=== PATIENT | male | born 1955 | race Caucasian/White ===

== ENCOUNTER 2016-10-29 07:14 | Emergency (ER) | payer BC ==
[2016-10-29 07:30] VITALS: BP 135/82; TEMP 97.8; O2SAT 95
[2016-10-29] MEDS ORDERED: LIDOCAINE 1% W/ EPINEPHRINE 20 ML VIAL INJ ONE (07:39)
[2016-10-29] MEDS ORDERED: NEOMYCIN-BACITRACIN-POLYMYXIN 0.9 GM UD TOP ONE (07:48)
[2016-10-29] MEDS ORDERED: SULFA/TRIMETH 800/160 (DS) TAB 1 EA TAB PO ONE (08:00)
--- NOTE | 2016-10-29 08:21 | ED.PDOC ---
History of Present Illness - General Chief Complaint: Skin/Abrasion/Tear Stated Complaint: skin irritation Time Seen by Provider: 10/29/16 08:19 Source: patient Exam Limitations: no limitations - History of Present Illness Initial Comments: the patient is a 61-year-old male presenting to the emergency room secondary to left anterior thigh abscess. There is been present for approximately 3 days. It was preceded by a smaller abscess to the right side of the mons pubis that his artery drained and healing. No fevers or systemic symptoms. No drainage from the site yet. He is neurovascularly intact distally. He has diabetic. No evidence of sepsis. Severity: moderate Improving Factors: nothing Worsening Factors: nothing Associated Symptoms: denies symptoms Allergies/Adverse Reactions: Allergies Amoxicillin Allergy (Verified 10/29/16 07:30) Rash Penicillin G Allergy (Verified 10/29/16 07:30) Rash Home Medications: Ambulatory Orders Lisinopril [Prinivil] 20 mg PO DAILY 03/06/13 Glyburide 2.5 mg PO DAILY 10/29/16 Sitagliptin-Metformin HCl [Janumet] 1 tab PO DAILY 10/29/16 Sulfamethoxazole-Trimethoprim [Bactrim Ds 800-160 mg] 1 tab PO BID #10 tab 10/29 Review of Systems - Review of Systems Constitutional: States: no symptoms reported EENTM: States: no symptoms reported Respiratory: States: no symptoms reported Cardiology: States: no symptoms reported Gastrointestinal/Abdominal: States: no symptoms reported Genitourinary: States: no symptoms reported Musculoskeletal: States: see HPI Skin: States: see HPI Neurological: States: no symptoms reported Endocrine: States: no symptoms reported All other Systems: No Change from Baseline Past Medical History (General) - Patient Medical History Hx Stroke: No Hx Congestive Heart Failure: No Hx Hypertension: Yes Hx Diabetes: Yes Surgical History: no surgical history - Vaccination History Hx Influenza Vaccination: No Hx Pneumococcal Vaccination: No - Social History Hx Tobacco Use: Yes - Quit 2003 Family Medical History - Family History Mother Family History: Unknown Living Status: Hx Family Hypertension: Yes Physical Exam - Physical Exam General Appearance: Alert, Comfortable, No apparent distress Eye Exam: bilateral normal Ears, Nose, Throat: normal ENT inspection, normal pharynx Neck: non-tender, full range of motion, supple, normal inspection Respiratory: chest non-tender, lungs clear, normal breath sounds, no respiratory distress, no accessory muscle use Cardiovascular/Chest: normal peripheral pulses, no edema, other - regular rate Gastrointestinal/Abdominal: non tender, soft Rectal Exam: deferred Back Exam: normal inspection Extremity: normal range of motion, no pedal edema, no calf tenderness, normal capillary refill, other - area of erythema approximately size of a quarter to the mid anterior thigh on the left. Significant firmness underlying. Neurovascularly he appears to be at his baseline. He does have mild peripheral neuropathy related to his diabetes. Neurologic: alert, normal mood/affect, oriented x 3 Skin Exam: normal color Comments: Vital Signs - 24 hr 10/29/16 07:24 Temperature 97.8 F Pulse Rate [ 86 Left Radial] Respiratory 18 Rate Blood Pressure 135/82 [Right Arm] O2 Sat by Pulse 95 Oximetry Progress - Progress Progress: 10/29/16 08:22 the patient is a 61-year-old male presenting with abscess and surrounding cellulitis to his anterior left thigh. Risk benefits of incision and drainage explained. Patient agrees to proceed. 1% Xylocaine with epinephrine was used 2 cc for local anesthetic. 15 blade scalpel was used to open the abscess and a 1.2 cm incision. Approximately 1-1/2 cc of pus was obtained. This was actually less than expected but there is significant surrounding cellulitis. Wound culture has been taken. The patient has been started on Bactrim and he will be on Bactrim for a course of 5 days. He is to follow-up with his primary care doctor early next week. Return to the emergency room for any acute worsening. Control diabetes tightly. No packing should be required on this wound. ER warnings reiterated. Estimated blood loss less than 2 cc. Departure - Departure Clinical Impression: Abscess of skin Qualifiers: Site of cutaneous abscess: extremity Site of cutaneous abscess of extremity: lower extremity Laterality: left Qualifier Code: (L02.416) Cutaneous abscess of left lower limb Disposition: Discharge to Home or Self Care Condition: Fair Departure Forms: ED Discharge - Pt. Copy, ED Discharge - Work Release, Patient Portal Self Enrollment Instructions: DI for Incision and Drainage of a Skin Abscess Diet: diabetic diet Activity: increase activity as tolerated Referrals: Roxana Brown NP [Primary Care Provider] - 1-2 Weeks Prescriptions: Sulfamethoxazole-Trimethoprim [Bactrim Ds 800-160 mg] 1 tab PO BID #10 tab Home Medications: Ambulatory Orders Lisinopril [Prinivil] 20 mg PO DAILY 03/06/13 Glyburide 2.5 mg PO DAILY 10/29/16 Sitagliptin-Metformin HCl [Janumet] 1 tab PO DAILY 10/29/16 Sulfamethoxazole-Trimethoprim [Bactrim Ds 800-160 mg] 1 tab PO BID #10 tab 10/29 Additional Instructions: the patient is a 61-year-old male presenting with abscess and surrounding cellulitis to his anterior left thigh. Risk benefits of incision and drainage explained. Patient agrees to proceed. 1% Xylocaine with epinephrine was used 2 cc for local anesthetic. 15 blade scalpel was used to open the abscess and a 1.2 cm incision. Approximately 1-1/2 cc of pus was obtained. This was actually less than expected but there is significant surrounding cellulitis. Wound culture has been taken. The patient has been started on Bactrim and he will be on Bactrim for a course of 5 days. He is to follow-up with his primary care doctor early next week. Return to the emergency room for any acute worsening. Control diabetes tightly. No packing should be required on this wound. ER warnings reiterated. Estimated blood loss less than 2 cc. Wash twice daily with antibacterial soap and water.
== END 2016-10-29 08:25 | disposition home or self-care (01) ==
LOC: ER 07:14
DX: L02.416 Cutaneous abscess of left lower limb (principal); I10 Essential (primary) hypertension; E11.9 Type 2 diabetes mellitus without complications; Z88.3 Allergy status to other anti-infective agents; Z88.0 Allergy status to penicillin; Z79.899 Other long term (current) drug therapy; Z87.891 Personal history of nicotine dependence

== ENCOUNTER → 2017-05-31 | Outpatient (CLI) | payer BC ==
--- NOTE | 2017-06-02 11:55 | RAD ---
EXAM DESCRIPTION: Hip,Right 2 Views CLINICAL HISTORY: 61 years Male, RIGHT HIP PAIN COMPARISON: None. FINDINGS: 4 views of the right hip show no acute fracture or malalignment. The right hip joint space is well-maintained. Mild degenerative calcifications arise from the posterior margin of the acetabulum. The sacroiliac joint spaces are well-maintained. Mild degenerative changes are noted in the lower lumbar spine, only partially visualized. IMPRESSION: Mild degenerative changes in the right hip and lower lumbar spine, otherwise unremarkable exam. Electronically signed by: Constantine Abernathy MD 06/02/2017 11:54 AM CDT
== END ==
LOC: RAD 16:50
DX: M25.551 Pain in right hip (principal)

== ENCOUNTER 2017-06-22 09:02 | Inpatient (IN) | payer BC ==
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
[2017-06-22] MEDS ORDERED: GLUCAGON INJ 1 MG VIAL SUBCU PRN (09:47)
[2017-06-22] MEDS ORDERED: DEXTROSE 50% 25 GM/50 ML SYG IV PRN (09:47)
[2017-06-22] MEDS ORDERED: SODIUM CHLORIDE 0.9% (FLUSH) 10 ML SYG IV SCH ×2 (10:00→21:00)
[2017-06-22] MEDS ORDERED: SODIUM CHLORIDE 0.9% 1000ML 1,000 ML IVS PRN (11:12)
[2017-06-22] MEDS ORDERED: SODIUM CHLORIDE 0.9% (FLUSH) 10 ML SYG IV PRN (11:23)
[2017-06-22] MEDS ORDERED: VANCOMYCIN PER PHARMACY IVPB SCH (11:30)
[2017-06-22] MEDS: INSULIN LISPRO 100 UNITS/ML PEN SUBCU SCH ×3 (11:45→21:11)
[2017-06-22] MEDS ORDERED: VANCOMYCIN HCL INJ 1,000 MG, VANCOMYCIN HCL INJ 250 MG in SODIUM CHLORIDE 0.9% 250ML 25... IVPB SCH (12:00)
[2017-06-22] MEDS ORDERED: ACETAMINOPHEN 325 MG TAB PO PRN (12:33)
[2017-06-22] MEDS ORDERED: TEMAZEPAM 15 MG CAP PO PRN (12:33)
[2017-06-22] MEDS ORDERED: ONDANSETRON INJ 4 MG/2 ML VIAL IV PRN (12:33)
--- NOTE | 2017-06-22 12:43 | PCM.CORE ---
Physician DVT/VTE - Prophylaxis Currently: Patient already on anticoagulation therapy - Nurse DVT Assessment & Total Each Risk Factor Represents 3 Points: Medical PT with Hx of IA, CHF, Severe infection/sepsis Each Risk Factor Represents 1 Point: Age 41-60 Each Risk Factor is 1 Point: Obesity (BMI >25) DVT Assessment Score: 5 - 5 or more Very High Risk Treatments: Early Ambulation *, Sequential Compression Device - left leg only
[2017-06-22] MEDS ORDERED: SODIUM CHLORIDE 0.9% 250ML 250 ML ONE (12:52)
[2017-06-22] MEDS ORDERED: VANCOMYCIN HCL INJ 500 MG VIAL ONE (12:52)
[2017-06-22] MEDS ORDERED: PANTOPRAZOLE SODIUM IV 40 MG VIAL ONE (12:53)
[2017-06-22] MEDS ORDERED: VANCOMYCIN HCL INJ 1,000 MG VIAL IVPB ONE (12:53)
[2017-06-22] MEDS ORDERED: ENOXAPARIN SODIUM 40 MG/0.4 ML SYG SUBCU SCH (13:00)
[2017-06-22] MEDS: VANCOMYCIN HCL INJ 1,000 MG, VANCOMYCIN HCL INJ 250 MG in SODIUM CHLORIDE 0.9% 250ML 25... IVPB SCH (13:11)
[2017-06-22] MEDS: PANTOPRAZOLE SODIUM IV 40 MG VIAL IV SCH (13:11)
[2017-06-22] MEDS: ENOXAPARIN SODIUM 40 MG/0.4 ML SYG SUBCU SCH (13:13)
[2017-06-22] MEDS: IV SET AND CAP CHANGE INJ INJ SCH (13:15)
--- NOTE | 2017-06-22 14:03 | US ---
EXAM DESCRIPTION: Venous,Lower Extremity RT CLINICAL HISTORY: cellulitis. Localized pain, swelling, and edema in the right leg. COMPARISON: None Available. TECHNIQUE: Right lower extremity venous grayscale, spectral, and color Doppler sonographic images. FINDINGS: There is no DVT identified. There is normal color flow observed with good flow augmentation. All deep veins compress normally. IMPRESSION: Negative for DVT Electronically signed by: Froylan Newsome MD 06/22/2017 2:01 PM CDT
[2017-06-22] MEDS ORDERED: GABAPENTIN 300 MG CAP ONE (19:34)
[2017-06-22] MEDS ORDERED: HYDROcodone 7.5MG/APAP 325MG 1 EA TAB ONE (19:35)
[2017-06-22] MEDS: GABAPENTIN 300 MG CAP PO SCH (21:12)
[2017-06-22] MEDS: HYDROcodone 7.5MG/APAP 325MG 1 EA TAB PO SCH (21:12)
[2017-06-23] MEDS ORDERED: SODIUM CHLORIDE 0.9% 250ML 250 ML ONE ×2 (00:37→07:32)
[2017-06-23] MEDS ORDERED: VANCOMYCIN HCL INJ 1,000 MG VIAL IVPB ONE ×2 (00:37→07:33)
[2017-06-23] MEDS ORDERED: VANCOMYCIN HCL INJ 500 MG VIAL ONE ×2 (00:37→07:32)
[2017-06-23] MEDS: VANCOMYCIN HCL INJ 1,000 MG, VANCOMYCIN HCL INJ 250 MG in SODIUM CHLORIDE 0.9% 250ML 25... IVPB SCH ×2 (01:14→12:59)
[2017-06-23] MEDS: PANTOPRAZOLE SODIUM IV 40 MG VIAL IV SCH (06:31)
[2017-06-23] MEDS: glyBURIDE 5 MG TAB PO SCH (06:35)
[2017-06-23] MEDS ORDERED: [UNRECOGNIZED DRUG - OTHER] PO SCH (07:00)
[2017-06-23] MEDS ORDERED: SITAGLIPTIN PO SCH (07:00)
[2017-06-23] MEDS ORDERED: METFORMIN PO SCH (07:00)
--- NOTE | 2017-06-23 07:31 | RAD ---
EXAM DESCRIPTION: Right knee, 2 views CLINICAL HISTORY: cellulitis FINDINGS/ IMPRESSION: Normal mineralization. Mild joint space narrowing medial femorotibial. Small joint line osteophytes tricompartmental. Enthesophyte at the patellar tendon attachment to the tibia. Soft tissue swelling and edema anteriorly may be patellar tendinosis. No fracture or focal osteochondral lesion. Mild diffuse subcutaneous edema around the knee, possibly related to cellulitis. . No joint effusion or intra-articular body Electronically signed by: Jose Arenas MD 06/23/2017 7:30 AM CDT
[2017-06-23] MEDS ORDERED: LISINOPRIL 10 MG TAB ONE (07:32)
[2017-06-23] MEDS: SITagliptin 50 MG TAB PO SCH (07:49)
[2017-06-23] MEDS: metFORMIN XR 500 MG TAB.ER.24 PO SCH (07:49)
[2017-06-23] MEDS: INSULIN LISPRO 100 UNITS/ML PEN SUBCU SCH ×4 (07:50→21:12)
[2017-06-23] MEDS: ENOXAPARIN SODIUM 40 MG/0.4 ML SYG SUBCU SCH (08:55)
[2017-06-23] MEDS: LISINOPRIL 10 MG TAB PO SCH (08:55)
[2017-06-23] MEDS: HYDROcodone 5MG/APAP 325MG 1 EA TAB PO PRN (16:12)
--- NOTE | 2017-06-23 17:46 | PN ---
DATE: 06/23/17 SUPERVISING PHYSICIAN: Jose Delaney M.D. SUBJECTIVE: The patient is sitting up in his hospital bed. His is at the bedside. No complaints of shortness of breath, nausea, vomiting or diarrhea. He feels like the pain in his right lower leg has improved and the swelling has gone down. OBJECTIVE: VITAL SIGNS: He is afebrile, heart rate 99, blood pressure 130/67, respiratory rate 17, O2 sat is 97% on 2 liters nasal cannula. RESPIRATORY: Clear to auscultation bilaterally. CARDIAC: Regular rate and rhythm. ABDOMEN: Soft, nondistended, non-tender. Bowel sounds are positive. EXTREMITIES: Bilateral pedal pulses are palpable at +2. The erythema to the right lower leg has improved since yesterday as well as the swelling has decreased. There is still a central area on the right knee that is necrotic but it looks like it is sloughing off to some degree and there is redness that extends somewhat down the chin but improved since yesterday. There is minimal drainage from the central wound area. NEUROLOGIC: He is awake, alert and oriented times three. LABORATORY: WBCs are 6.1 with hemoglobin 13.6, hematocrit 39.3, neutrophils are 73.8%. Electrolytes are basically within normal limits with a slightly elevated BUN of 20 and creatinine 0.83. Glucose has run between 121 and 169. Liver enzymes are basically within normal limits. Preliminary MRSA surveillance of the nares shows no growth up to 24 hours. His preliminary blood cultures show no growth after 24 hours. Wound culture to the right lower leg preliminary shows gram positive cocci. RADIOLOGY: His knee x-ray per radiology interpretation show normal mineralization, mild joint space narrowing medial femorotibial, small joint line osteophytes tricompartmental. Enthesophyte at the patellar tendon attachment to the tibia, soft tissue swelling and edema anteriorly may be patellar tendinosis. No fracture or focal osteochondral lesion. Mild diffuse subcutaneous edema around the knee possibly related to cellulitis. No joint effusion or intraarticular body. All other labs and films have been reviewed via the EMR. ASSESSMENT: 1. Cellulitis of the right lower extremity failed outpatient therapy with an elevated CRP of 16.1 on admission. 2. Diabetes mellitus type 2. 3. Diabetic neuropathy. 4. Hypertension. 5. Gastroesophageal reflux disease. 6. History of kidney stones. PLAN: We will continue present supportive care. We will continue with the vancomycin and wait for the wound culture sensitivities. We will change therapy as indicated. I have repeated his lab for in the morning. Hopefully his cultures will show a sensitivity to oral antibiotics and he can be discharged home in the next 1 to 2 days. I have also repeated a CRP in the morning. I have encouraged the patient to have good pulmonary hygiene as well as ambulation. He has had some pain with ambulation prior to his admission to the hospital, so I have consulted Physical Therapy to assist with his use of the cane as well as to assess his stability with walking. He has also complained that he could not sleep at night, so I have ordered some melatonin at night. Otherwise we will continue to monitor the patient closely and followup as needed. Dr. Delaney is the collaborating physician available for consultation. [facility][id number] [facility]
[2017-06-23] MEDS ORDERED: PANTOPRAZOLE SODIUM TAB 40 MG PO ONE (19:48)
[2017-06-23] MEDS: GABAPENTIN 300 MG CAP PO SCH (20:24)
[2017-06-23] MEDS: HYDROcodone 7.5MG/APAP 325MG 1 EA TAB PO SCH (20:24)
[2017-06-23] MEDS: MELATONIN 3 MG TAB PO SCH (20:24)
[2017-06-24] MEDS ORDERED: SODIUM CHLORIDE 0.9% 250ML 250 ML ONE ×2 (00:23→13:24)
[2017-06-24] MEDS ORDERED: VANCOMYCIN HCL INJ 500 MG VIAL ONE ×2 (00:23→13:23)
[2017-06-24] MEDS ORDERED: VANCOMYCIN HCL INJ 1,000 MG VIAL IVPB ONE ×2 (00:24→13:24)
[2017-06-24] MEDS: VANCOMYCIN HCL INJ 1,000 MG, VANCOMYCIN HCL INJ 250 MG in SODIUM CHLORIDE 0.9% 250ML 25... IVPB SCH ×2 (01:32→13:30)
[2017-06-24] MEDS: PANTOPRAZOLE SODIUM TAB 40 MG PO SCH (06:00)
[2017-06-24] MEDS: glyBURIDE 5 MG TAB PO SCH (06:00)
[2017-06-24] MEDS: INSULIN LISPRO 100 UNITS/ML PEN SUBCU SCH ×4 (07:15→21:10)
[2017-06-24] MEDS: metFORMIN XR 500 MG TAB.ER.24 PO SCH (07:16)
[2017-06-24] MEDS: SITagliptin 50 MG TAB PO SCH (07:23)
[2017-06-24] MEDS: HYDROcodone 5MG/APAP 325MG 1 EA TAB PO PRN (07:54)
[2017-06-24] MEDS: LISINOPRIL 10 MG TAB PO SCH (08:01)
[2017-06-24] MEDS: ENOXAPARIN SODIUM 40 MG/0.4 ML SYG SUBCU SCH (08:06)
--- NOTE | 2017-06-24 17:07 | PN ---
DATE: 06/24/17 SUPERVISING PHYSICIAN: Jose Delaney M.D. SUBJECTIVE: The patient is resting in bed with his leg elevated. He notes that the pain in his leg is much less than previous days as well as the swelling has gone down. He has had no complications from antibiotics. He has no complaints of any shortness of breath, nausea, vomiting or diarrhea. OBJECTIVE: VITAL SIGNS: He remains afebrile, temperature 98.1, pulse 86, blood pressure 102/70, respirations 18, satting 99% on room air. I's and O's show a positive balance of 810 with 2510 in, 1700 out. He has had 1 bowel movement. Weight is 97.0 kg. CHEST: Lungs are clear to auscultation bilaterally. HEART: Regular rate and rhythm. ABDOMEN: Soft, non-tender. Positive bowel sounds. EXTREMITIES: No clubbing, cyanosis or edema. Right knee continues to show an area overlying the tibial tuberosity with some edema and erythema, but no areas of consolidation. There is an area centrally located in the middle with some sloughing tissue that is superficial, but no areas of obvious fluid collection. NEUROLOGIC: He is alert and oriented times three. LABORATORY: White count remains within normal limits at 6,600, hemoglobin is stable at 14.2, hematocrit 41.4, platelet count 106,000. Differential shows to be within normal limits. Chemistries: Electrolytes remain within normal limits with potassium 4.8. Blood sugars are good control at 105 to 194. Magnesium 1.8 , calcium 9.6, C reactive protein is down to 6.3. Vancomycin trough is pending. MICROBIOLOGY: Blood cultures remain negative at 48 hours. Wound culture of the right lower extremity wound shows Staphylococcus aureus which is Methicillin resistant showing sensitive to vancomycin. His MRSA surveillance culture, however, was negative at 48 hours. ASSESSMENT: 1. Cellulitis of the right lower extremity overlying the right tibial tuberosity with culture results showing a Methicillin resistant Staphylococcus aureus which is sensitive to vancomycin with an elevated CRP on admission showing improvement after initiation of antibiotic therapy. 2. Diabetes mellitus type 2 complicated with diabetic neuropathy. 3. Hypertension. 4. Gastroesophageal reflux disease. 5. History of kidney stones. PLAN: Will continue with vancomycin per Pharmacy protocol for an additional 24 to 48 hours as he continues to show improvement, but slow. His C reactive protein did improve today. I did remove a small amount of superficial tissue overlying the wound area. This will be cleaned with diluted Hibiclens and covered with sterile dressings. He will be encouraged to keep his leg elevated when not out of bed. Will continue to encourage good pulmonary hygiene and ambulation as possible. He continues to ambulate with a cane and has been evaluated by Physical Therapy and found to be safe to ambulate without assistance. Will anticipate discharging either Tuesday or Tuesday hopefully to continue with outpatient therapy once clinically showing good improvement. Until then, will continue to monitor and treat appropriately. #[id number] [facility]
[2017-06-24] MEDS: SODIUM CHLORIDE 0.9% (FLUSH) 10 ML SYG IV PRN (20:32)
[2017-06-24] MEDS: HYDROcodone 7.5MG/APAP 325MG 1 EA TAB PO SCH (20:33)
[2017-06-24] MEDS: MELATONIN 3 MG TAB PO SCH (20:33)
[2017-06-24] MEDS: GABAPENTIN 300 MG CAP PO SCH (20:33)
[2017-06-25] MEDS ORDERED: VANCOMYCIN HCL INJ 500 MG VIAL ONE ×3 (00:14→19:09)
[2017-06-25] MEDS ORDERED: SODIUM CHLORIDE 0.9% 250ML 250 ML ONE ×3 (00:15→19:09)
[2017-06-25] MEDS ORDERED: VANCOMYCIN HCL INJ 1,000 MG VIAL IVPB ONE ×3 (00:15→19:11)
[2017-06-25] MEDS: VANCOMYCIN HCL INJ 1,000 MG, VANCOMYCIN HCL INJ 250 MG in SODIUM CHLORIDE 0.9% 250ML 25... IVPB SCH ×2 (01:03→12:33)
[2017-06-25] MEDS: SODIUM CHLORIDE 0.9% (FLUSH) 10 ML SYG IV PRN ×2 (03:15→22:01)
[2017-06-25] MEDS: PANTOPRAZOLE SODIUM TAB 40 MG PO SCH (06:32)
[2017-06-25] MEDS: glyBURIDE 5 MG TAB PO SCH (06:33)
[2017-06-25] MEDS: INSULIN LISPRO 100 UNITS/ML PEN SUBCU SCH ×4 (07:44→21:02)
[2017-06-25] MEDS: SITagliptin 50 MG TAB PO SCH (07:47)
[2017-06-25] MEDS: metFORMIN XR 500 MG TAB.ER.24 PO SCH (07:47)
[2017-06-25] MEDS: LISINOPRIL 10 MG TAB PO SCH (09:25)
[2017-06-25] MEDS: ENOXAPARIN SODIUM 40 MG/0.4 ML SYG SUBCU SCH (09:25)
[2017-06-25] MEDS ORDERED: cefTRIAXone SODIUM 1 GM VIAL ONE ×2 (09:52→19:10)
[2017-06-25] MEDS ORDERED: SODIUM CHL 0.9% 50ML MIN-BAG+ 50 ML IVPB ONE ×2 (09:52→19:09)
[2017-06-25] MEDS: cefTRIAXone SODIUM 1 GM in SODIUM CHL 0.9% 50ML MIN-BAG+ 50 ML IVPB SCH ×2 (09:58→22:00)
[2017-06-25] MEDS: IV SET AND CAP CHANGE INJ INJ SCH (12:10)
[2017-06-25] MEDS: HYDROcodone 5MG/APAP 325MG 1 EA TAB PO PRN (12:38)
--- NOTE | 2017-06-25 16:35 | PN ---
DATE: 06/25/17 SUPERVISING PHYSICIAN: Jose Delaney M.D. SUBJECTIVE: The patient is resting in bed with his leg elevated. He feels better today. He says the pain in his leg has decreased significantly. He has had no nausea, vomiting or diarrhea. OBJECTIVE: VITAL SIGNS: He remains afebrile, temperature 97.8, pulse 89, blood pressure 134/63, respirations 16, satting 99% on room air. I's and O's show a positive balance of 880 with 1380 in, 500 out. He has had 1 bowel movement. CHEST: Lungs remain clear to auscultation bilaterally. HEART: Regular rate and rhythm. ABDOMEN: Soft, non-tender. Positive bowel sounds. EXTREMITIES: No clubbing, cyanosis or edema. Wound on the right lower extremity overlying the tibial tuberosity shows improvement with less erythema and decreased edema. No areas of consolidation. Pulses distally are strong. Capillary refill is brisk. NEUROLOGIC: He is alert and oriented times three. LABORATORY: No repeat laboratory today. Plan to repeat in the morning. ASSESSMENT: 1. Cellulitis of the right lower extremity overlying the tibial tuberosity. Blood culture results showing Methicillin resistant Staphylococcus aureus which is sensitive to vancomycin with the patient having an elevated CRP on admission showing improvement after initiation of antibiotic therapy. 2. Diabetes mellitus type 2 complicated by diabetic neuropathy. 3. Hypertension. 4. Gastroesophageal reflux disease. 5. History of kidney stones. PLAN: Will continue with vancomycin for an additional 24 hours as well as add Rocephin 1 gram every 12 hours to cover for some Streptococcus coverage. Will plan to repeat laboratory studies in the morning with hopefully anticipating discharge. He is on wound management with Hibiclens solution and he can shower. He is encouraged to ambulate and keep the wound covered and when in bed to keep his leg elevated. Until discharge, will continue to monitor and treat appropriately. #[id number] [facility]
[2017-06-25] MEDS: HYDROcodone 7.5MG/APAP 325MG 1 EA TAB PO SCH (21:01)
[2017-06-25] MEDS: MELATONIN 3 MG TAB PO SCH (21:01)
[2017-06-25] MEDS: GABAPENTIN 300 MG CAP PO SCH (21:02)
[2017-06-26] MEDS: VANCOMYCIN HCL INJ 1,000 MG, VANCOMYCIN HCL INJ 250 MG in SODIUM CHLORIDE 0.9% 250ML 25... IVPB SCH ×2 (00:56→13:14)
[2017-06-26] MEDS: PANTOPRAZOLE SODIUM TAB 40 MG PO SCH (06:53)
[2017-06-26] MEDS: glyBURIDE 5 MG TAB PO SCH (06:53)
[2017-06-26] MEDS ORDERED: SODIUM CHL 0.9% 50ML MIN-BAG+ 50 ML IVPB ONE (08:03)
[2017-06-26] MEDS ORDERED: cefTRIAXone SODIUM 1 GM VIAL ONE (08:03)
[2017-06-26] MEDS: INSULIN LISPRO 100 UNITS/ML PEN SUBCU SCH ×2 (08:11→13:14)
[2017-06-26] MEDS: metFORMIN XR 500 MG TAB.ER.24 PO SCH (08:12)
[2017-06-26] MEDS: SITagliptin 50 MG TAB PO SCH (08:12)
[2017-06-26] MEDS: LISINOPRIL 10 MG TAB PO SCH (08:12)
[2017-06-26] MEDS: ENOXAPARIN SODIUM 40 MG/0.4 ML SYG SUBCU SCH (08:14)
[2017-06-26] MEDS: HYDROcodone 5MG/APAP 325MG 1 EA TAB PO PRN (08:19)
[2017-06-26] MEDS: cefTRIAXone SODIUM 1 GM in SODIUM CHL 0.9% 50ML MIN-BAG+ 50 ML IVPB SCH (09:42)
[2017-06-26 12:17] VITALS: TEMP 97.9; O2SAT 98
[2017-06-26] MEDS ORDERED: VANCOMYCIN HCL INJ 1,000 MG VIAL IVPB ONE (12:44)
[2017-06-26] MEDS ORDERED: SODIUM CHLORIDE 0.9% 250ML 250 ML ONE ×2 (12:44→12:59)
[2017-06-26] MEDS ORDERED: VANCOMYCIN HCL INJ 500 MG VIAL ONE (12:44)
[2017-06-26 15:33] VITALS: BP 117/83
--- NOTE | 2017-07-01 11:02 | DS ---
SUPERVISING PHYSICIAN: Jose Delaney MD DISCHARGE DIAGNOSIS: 1. Cellulitis of the right lower extremity overlying the tibial tuberosity with wound culture showing Methicillin resistant Staphylococcus aureus which is sensitive to vancomycin with the patient having an elevated CRP on admission, showing improvement after initiation of antibiotic therapy. 2. Diabetes mellitus, type 2, complicated by diabetic neuropathy. 3. Hypertension. 4. Gastroesophageal reflux disease. 5. History of kidney stones. HISTORY OF PRESENT ILLNESS: Mr. Hadley is a 61-year-old male patient who reported that approximately 2 weeks previously he fell and hit his right knee on a rock. He did not have any problems with it, but over the weekend, he noticed a small red bump on his right knee. He cleaned it thoroughly, put peroxide on it as well as antibacterial ointment and it started hurting when he walked. He went to see Dr. Bay at [facility] on Tuesday morning. At that time, Dr. Bay put him on some clindamycin and some ceftriaxone and had him followup on date of admission. At that time, the infection was much worse than it was on Tuesday. His ankle was swollen. He had quite a bit of pain and the sore on his knee was actually oozing purulent fluid. Dr. Bay ordered an ultrasound of the right lower extremity and called me for admission to the hospital. The patient was sent over from [facility] for admission. LABORATORY: White count remained within normal limits. At admission, it was 9, 900. At discharge, it was 6,800. Hemoglobin and hematocrit were stable and at discharge were 14.9 and 42.8. Platelet count 124,000. Differential did show a left shift initially, but after initiation of antibiotics showed improvement and was within normal limits. Chemistries on admission did show a mild hyponatremia with sodium 134, potassium 4.7, BUN 30, creatinine 1.05. Liver functions within normal limits. C-reactive protein was elevated at 16.1. After initiation of treatment and prior to discharge, his electrolytes had normalized. BUN was down to 19, creatinine down to 0.89, C-reactive protein was down to 6.3. Vancomycin trough was 12.0. MICROBIOLOGY: MRSA surveillance culture showed no growth at 72 hours. Wound culture of the right leg did show MRSA and was sensitive to vancomycin as well as Bactrim and clindamycin. Blood cultures remained negative after five days. RADIOLOGY: Lower extremity ultrasound prior to admission per radiologic interpretation showed no DVT identified. Please see that report for full details. He also had a right knee x-ray on admission and per radiologic interpretation, there was no joint effusion or intraarticular loose bodies noted. No fractures or focal osteochondral lesions. There was mild diffuse subcutaneous edema around the knee, possibly related to cellulitis. HOSPITAL COURSE: Mr. Hadley was admitted as noted above and started on vancomycin and Rocephin with aggressive wound management with diluted Hibiclens. He did show good resolution of his symptoms and the area was showing improvement slowly, but continues to show need for IV antibiotics. However, he was stable and it was felt he could continue with IV antibiotics in the outpatient setting. He was discharged in stable condition. PLAN: Mr. Hadley was discharged on 06/26/17 with arrangements to have three additional days of vancomycin and Rocephin infusions as per pharmacy protocol and to have close clinical followup with Dr. Bay at [facility]. He was given wound care instructions and told to return to the hospital should he have any worsening of his symptoms. He was to call Dr. Bay to have followup on 06/29/17 or sooner as needed. No prescriptions were provided at discharge. All his medications prior to admission were resumed except for his antibiotics, which were to be held, including clindamycin and Bactrim until he was seen in followup with Dr. Bay once had finished his additional three days of infusion of vancomycin and Rocephin. DIET AT DISCHARGE: Diabetic as tolerated. ACTIVITIES: As tolerated. CONDITION AT DISCHARGE: Stable. #[id number] [facility]
== END 2017-06-26 13:25 | disposition home or self-care (01) | DRG 603 ==
LOC: YCFC.O 09:02 → MS 09:15
PROVIDERS: ADMIT Nurse Practitioner Acute Care; ATTEND Nurse Practitioner Family
DX: L03.115 Cellulitis of right lower limb (principal); E11.42 Type 2 diabetes mellitus with diabetic polyneuropathy; B95.62 Methicillin resistant Staphylococcus aureus infection as the cause of diseases classified elsewhere; I10 Essential (primary) hypertension; K21.9 Gastro-esophageal reflux disease without esophagitis; Z88.0 Allergy status to penicillin; Z87.891 Personal history of nicotine dependence

== ENCOUNTER → 2017-06-26 | Outpatient (CLI) | payer BC ==
[~2017-06-26] MED LIST: IV SET AND CAP CHANGE INJ INJ SCH; SODIUM CHL 0.9% 50ML MIN-BAG+ 50 ML IVPB ONE; SODIUM CHLORIDE 0.9% 250ML 250 ML IVPB ONE; SODIUM CHLORIDE 0.9% 250ML 250 ML ONE; VANCOMYCIN HCL INJ 1,000 MG VIAL IVPB ONE; VANCOMYCIN HCL INJ 500 MG VIAL IVPB ONE; VANCOMYCIN HCL INJ 500 MG VIAL ONE; cefTRIAXone SODIUM 1 GM VIAL IVPB ONE; cefTRIAXone SODIUM 1 GM VIAL ONE
[2017-06-26] MEDS: cefTRIAXone SODIUM 1 GM in SODIUM CHL 0.9% 50ML MIN-BAG+ 50 ML IVPB SCH (22:44)
[2017-06-26] MEDS: SODIUM CHLORIDE 0.9% (FLUSH) 10 ML SYG IV PRN (22:48)
[2017-06-26] MEDS: WATER FOR IRRIGATION TOP SCH ×2 (23:38)
[2017-06-26] MEDS: [UNRECOGNIZED DRUG - OTHER] TOP SCH ×2 (23:38)
[2017-06-26] MEDS: VANCOMYCIN HCL INJ 1,000 MG, VANCOMYCIN HCL INJ 250 MG in SODIUM CHLORIDE 0.9% 250ML 25... IVPB SCH (23:57)
[2017-06-27] MEDS: cefTRIAXone SODIUM 1 GM in SODIUM CHL 0.9% 50ML MIN-BAG+ 50 ML IVPB SCH ×2 (11:13→22:47)
[2017-06-27] MEDS: [UNRECOGNIZED DRUG - OTHER] TOP SCH ×2 (11:29)
[2017-06-27] MEDS: WATER FOR IRRIGATION TOP SCH ×2 (11:29)
[2017-06-27] MEDS: VANCOMYCIN HCL INJ 1,000 MG, VANCOMYCIN HCL INJ 250 MG in SODIUM CHLORIDE 0.9% 250ML 25... IVPB SCH ×2 (11:58→23:25)
[2017-06-27] MEDS: SODIUM CHLORIDE 0.9% (FLUSH) 10 ML SYG IV PRN ×2 (22:48)
[2017-06-28] MEDS: cefTRIAXone SODIUM 1 GM in SODIUM CHL 0.9% 50ML MIN-BAG+ 50 ML IVPB SCH ×2 (10:58→23:10)
[2017-06-28] MEDS: SODIUM CHLORIDE 0.9% (FLUSH) 10 ML SYG IV PRN ×2 (10:59→11:43)
[2017-06-28] MEDS: VANCOMYCIN HCL INJ 1,000 MG, VANCOMYCIN HCL INJ 250 MG in SODIUM CHLORIDE 0.9% 250ML 25... IVPB SCH ×2 (11:45→23:40)
[2017-06-28] MEDS: [UNRECOGNIZED DRUG - OTHER] TOP SCH ×2 (12:04)
[2017-06-28] MEDS: WATER FOR IRRIGATION TOP SCH ×2 (12:04)
[2017-06-29 01:47] VITALS: BP 127/73; TEMP 98.4; O2SAT 97
[2017-06-29] MEDS: [UNRECOGNIZED DRUG - OTHER] TOP SCH ×2 (11:02)
[2017-06-29] MEDS: WATER FOR IRRIGATION TOP SCH ×2 (11:02)
[2017-06-29] MEDS: cefTRIAXone SODIUM 1 GM in SODIUM CHL 0.9% 50ML MIN-BAG+ 50 ML IVPB SCH (11:03)
[2017-06-29] MEDS: SODIUM CHLORIDE 0.9% (FLUSH) 10 ML SYG IV PRN (11:41)
[2017-06-29] MEDS: VANCOMYCIN HCL INJ 1,000 MG, VANCOMYCIN HCL INJ 250 MG in SODIUM CHLORIDE 0.9% 250ML 25... IVPB SCH (11:41)
== END | disposition home or self-care (01) ==
LOC: TXRM 15:31
PROVIDERS: ATTEND Nurse Practitioner Family
DX: L03.115 Cellulitis of right lower limb (principal)
CPT/HCPCS: 96365; G0463; J0696; J3370; J7050

== ENCOUNTER → 2018-03-30 | Outpatient (CLI) | payer SELFPAY ==
--- NOTE | 2018-03-30 17:23 | RAD ---
EXAM DESCRIPTION: Foot,Left 2 Views CLINICAL HISTORY: LOCAL INFECTION OF SKIN AND SUBCUTANEOUS TISSUE COMPARISON: None Available. TECHNIQUE: AP, LATERAL FINDINGS: The visualized bones appear poorly mineralized. No acute fracture or dislocation. Focal soft tissue swelling along the dorsum of the forefoot.. Plantar and posterior calcaneal spurs. IMPRESSION: Focal soft tissue swelling along the dorsum of the forefoot.. Plantar and posterior calcaneal spurs. Electronically signed by: Davidson Rubin MD 03/30/2018 5:22 PM CDT
== END ==
LOC: YCFC.O 13:03
PROVIDERS: ATTEND Nurse Practitioner Family
DX: L08.9 Local infection of the skin and subcutaneous tissue, unspecified (principal); E11.42 Type 2 diabetes mellitus with diabetic polyneuropathy

== ENCOUNTER 2018-05-05 14:37 | Inpatient (IN) | payer BC ==
[2018-05-05] MEDS ORDERED: VANCOMYCIN HCL INJ 1,000 MG in SODIUM CHLORIDE 0.9% 250ML 250 ML IVPB ONE (15:27)
--- NOTE | 2018-05-05 15:30 | ED.PDOC ---
History of Present Illness - General Chief Complaint: Lower Extremity Injury Stated Complaint: left foot [id number] wound Time Seen by Provider: 05/05/18 15:24 Source: patient Exam Limitations: no limitations - History of Present Illness Initial Comments: patient comes in today for worsening of wound to his left foot. Patient is diabetic and a month ago had gotten some new work boots. They did not fit well and caused some maceration in between his toes that appeared to get infected. He was seen in the clinic and given a shot of antibiotics and it did seem to improve niacin. Patient states that he began to develop a sore on the top part of his third toe. Patient states it got swollen and irritated and he went back and got another dose of clindamycin. This time it has not helped and it has significantly worsened the last couple of days spreading to his second and fourth toes and causing severe pain on the underside of his foot. Patient does have a history of having a cellulitis that was positive for MRSA approximately a year ago on the other leg. Patient denies any fever, chills, nausea or vomiting. He's had no other acute complaints. His diabetes is only primary diagnoses and has no hypertension, hyperlipidemia, or coronary artery disease that he is aware of. He does not smoke, drink, or take illicit sepsis. He's recently lost 70 pounds by diet control Occurred: other - 1 month Pain - Lower Extremity: severe: Left Foot Method of Injury: other - poor fitting work boots Improving Factors: medication Worsening Factors: nothing Allergies/Adverse Reactions: Allergies NO KNOWN ALLERGY Allergy (Verified 05/05/18 14:55) Home Medications: Ambulatory Orders Lisinopril [Prinivil] 20 mg PO DAILY 03/06/13 Glyburide 2.5 mg PO DAILY@0700 10/29/16 Gabapentin 300 mg PO BEDTIME 06/22/17 Sitagliptin-Metformin HCl [Janumet Xr 100-1000 mg] 1 tab PO DAILY@0700 06/22/17 Multiple Vitamins W/ Minerals [Centrum Silver 50+Men] 1 tab PO DAILY 05/05/18 Review of Systems - Review of Systems Constitutional: States: no symptoms reported. Denies: chills, fever, weakness EENTM: States: no symptoms reported. Denies: eye pain, ear discharge, nose congestion, throat pain Respiratory: States: no symptoms reported. Denies: cough, short of breath, wheezing Cardiology: States: no symptoms reported. Denies: chest pain, edema, palpitations Gastrointestinal/Abdominal: States: no symptoms reported. Denies: abdominal pain, constipation, diarrhea Genitourinary: States: no symptoms reported Musculoskeletal: States: no symptoms reported Skin: States: see HPI Past Medical History (General) - Patient Medical History Hx Seizures: No Hx Stroke: No Hx Asthma: No Hx of COPD: No Hx Congestive Heart Failure: No Hx Pacemaker: No Hx Hypertension: Yes Hx Diabetes: Yes Hx MRSA: Yes - Wound 2017 MRSA Source:: Wound - Vaccination History Hx Tetanus, Diphtheria Vaccination: Yes Hx Influenza Vaccination: No Hx Pneumococcal Vaccination: No - Social History Hx Tobacco Use: Yes Hx Alcohol Use: No Hx Substance Use: No Hx Physical Abuse: No Hx Emotional Abuse: No Family Medical History - Family History Mother Family History: Unknown Living Status: Hx Family Hypertension: Yes Physical Exam - Physical Exam General Appearance: Alert, No apparent distress Eyes, Ears, Nose, Throat: PERRL/EOMI, normal ENT inspection, pharynx normal Neck: non-tender, full range of motion, supple Cardiovascular/Respiratory: regular rate, rhythm, no M/R/G, normal peripheral pulses, no JVD, normal breath sounds, no respiratory distress Gastrointestinal/Abdominal: non-tender Back: normal inspection Foot: other - erythema and swelling of 2nd through 4th toes. 1 cm oval wound on the third toe with pain and tenderness to the plantar foot without erythema at the 2nd through 4th metatarsals Progress - Results/Orders Results/Orders: 05/05/18 15:27 Vancomycin HCl Inj 1,000 mg Sodium Chloride 0.9% 250Ml [NS 250ml] 250 ml IVPB ONCE 05/05/18 15:34 BLOOD CULTURE Stat Laboratory Results WBC 8.9 K/mm3 (4.8-10.8) 05/05/18 15:34 RBC 3.98 M/mm3 (4.70-6.10) L 05/05/18 15:34 Hgb 12.5 gm/dL (14.0-18.0) L 05/05/18 15:34 Hct 36.8 % (42.0-52.0) L 05/05/18 15:34 MCV 92.4 fl (80.0-94.0) 05/05/18 15:34 MCH 31.4 pg (27.0-31.0) H 05/05/18 15:34 MCHC 34.1 g/dL (33.0-37.0) 05/05/18 15:34 RDW 13.4 % (11.5-14.5) 05/05/18 15:34 Plt Count 114 K/mm3 (130-400) L 05/05/18 15:34 MPV 9.2 fl (7.40-10.4) 05/05/18 15:34 Absolute Neuts (auto) 7.70 K/uL (1.8-6.8) H 05/05/18 15:34 Absolute Lymphs (auto) 0.50 K/uL (1.0-3.4) L 05/05/18 15:34 Absolute Monos (auto) 0.70 K/uL (0.2-0.8) 05/05/18 15:34 Absolute Eos (auto) 0.00 K/uL (0.0-0.4) 05/05/18 15:34 Absolute Basos (auto) 0.00 K/uL (0.0-0.1) 05/05/18 15:34 Neutrophils % 86.1 % (42.0-78.0) H 05/05/18 15:34 Lymphocytes % 5.8 % (20.0-50.0) L 05/05/18 15:34 Monocytes % 7.6 % (2.0-9.0) 05/05/18 15:34 Eosinophils % 0.4 % (1.0-5.0) L 05/05/18 15:34 Basophils % 0.1 % (0.0-2.0) 05/05/18 15:34 Sodium 136 mmol/L (135-145) 05/05/18 15:24 Potassium 4.2 mmol/L (3.6-5.0) 05/05/18 15:24 Chloride 101 mmol/L (101-111) 05/05/18 15:24 Carbon Dioxide 25 mmol/L (21-31) 05/05/18 15:24 Anion Gap 14.2 (12-18) 05/05/18 15:24 BUN 14 mg/dL (7-18) 05/05/18 15:24 Creatinine 0.68 mg/dL (0.6-1.3) 05/05/18 15:24 BUN/Creatinine Ratio 20.6 (10-20) H 05/05/18 15:24 Random Glucose 151 mg/dL (70-105) H 05/05/18 15:24 Serum Osmolality 275.3 mOsm/L (275-295) 05/05/18 15:24 Lactic Acid 1.1 mmol/L (0.5-2.2) 05/05/18 15:34 Calcium 9.3 mg/dL (8.4-10.2) 05/05/18 15:24 Total Bilirubin 0.6 mg/dL (0.2-1.0) 05/05/18 15:24 AST 26 IU/L (10-42) 05/05/18 15:24 ALT 25 IU/L (10-60) 05/05/18 15:24 Alkaline Phosphatase 77 IU/L (42-121) 05/05/18 15:24 Serum Total Protein 7.4 gm/dL (6.4-8.2) 05/05/18 15:24 Albumin 3.3 g/dl (3.2-5.5) 05/05/18 15:24 Globulin 4.1 gm/dL (2.3-3.5) H 05/05/18 15:24 Albumin/Globulin Ratio 0.8 (1.1-1.9) L 05/05/18 15:24 Patient Name: KIERAN SOLIS Gender: Male Date of : 1955 Referring Physician: ESPERANZA VINCENT Organization: [facility] Accession Number: [id number] Requested Date: May 05, 2018 15:24 Report Status: Final Requested Procedure: 1 Procedure Description: Foot,Left 3 Views Modality: CR Findings Reporting MD: Alexandro Becerril MD: Not available Dictation Time: Land Conservation Specialist: Not available Hoe Runner Date: EXAM: Foot,Left 3 Views CLINICAL INDICATION: Left foot wound, rule out osteomyelitis COMPARISON: 03/30/2018 FINDINGS: Three views of the left foot reveal soft tissue swelling of the third toe. There are bony destructive changes involving the proximal and middle phalanges of the third toe consistent with osteomyelitis. Pathologic fracture of the distal end of the proximal phalanx is noted. No other areas of osteomyelitis are seen. IMPRESSION: Findings consistent with osteomyelitis involving the proximal and middle phalanges of the left third toe Departure - Departure Clinical Impression: Osteomyelitis of ankle and foot Disposition: Admit Patient Condition: Good Departure Forms: ED Discharge - Pt. Copy, Patient Portal Self Enrollment Instructions: DI for Leg Pain Diet: diabetic diet Referrals: Naty Crane, RACK WORKER [Primary Care Provider] - 1-2 Weeks Home Medications: Ambulatory Orders Lisinopril [Prinivil] 20 mg PO DAILY 03/06/13 Glyburide 2.5 mg PO DAILY@0700 10/29/16 Gabapentin 300 mg PO BEDTIME 06/22/17 Sitagliptin-Metformin HCl [Janumet Xr 100-1000 mg] 1 tab PO DAILY@0700 06/22/17 Multiple Vitamins W/ Minerals [Centrum Silver 50+Men] 1 tab PO DAILY 05/05/18
[2018-05-05] MEDS ORDERED: SODIUM CHLORIDE 0.9% 250ML 250 ML ONE (15:40)
[2018-05-05] MEDS ORDERED: VANCOMYCIN HCL INJ 1,000 MG VIAL IVPB ONE (15:40)
--- NOTE | 2018-05-05 16:07 | RAD ---
EXAM: Foot,Left 3 Views CLINICAL INDICATION: Left foot wound, rule out osteomyelitis COMPARISON: 03/30/2018 FINDINGS: Three views of the left foot reveal soft tissue swelling of the third toe. There are bony destructive changes involving the proximal and middle phalanges of the third toe consistent with osteomyelitis. Pathologic fracture of the distal end of the proximal phalanx is noted. No other areas of osteomyelitis are seen. IMPRESSION: Findings consistent with osteomyelitis involving the proximal and middle phalanges of the left third toe. Electronically signed by: Alexandro Becerril MD 05/05/2018 4:05 PM CDT
[2018-05-05] MEDS ORDERED: ONDANSETRON ODT 8 MG TAB SL ONE (16:41)
[2018-05-05] MEDS ORDERED: KETOROLAC TROMETHAMINE INJ 30 MG/ML VIAL IV ONE (16:41)
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
[2018-05-05] MEDS ORDERED: ACETAMINOPHEN 325 MG TAB PO ONE (18:26)
[2018-05-05] MEDS ORDERED: DEXTROSE 50% 25 GM/50 ML SYG IV PRN (18:53)
[2018-05-05] MEDS ORDERED: GLUCAGON INJ 1 MG VIAL SUBCU PRN (18:53)
[2018-05-05] MEDS ORDERED: SODIUM CHLORIDE 0.9% 1000ML 1,000 ML IVS ONE (19:00)
[2018-05-05] MEDS ORDERED: glyBURIDE 5 MG TAB PO ONE (19:34)
[2018-05-05] MEDS: SODIUM CHLORIDE 0.9% (FLUSH) 10 ML SYG IV PRN (19:39)
[2018-05-05] MEDS: IV SET AND CAP CHANGE INJ INJ SCH (19:40)
[2018-05-05] MEDS: ENOXAPARIN SODIUM 40 MG/0.4 ML SYG SUBCU SCH (20:49)
[2018-05-05] MEDS: GABAPENTIN 300 MG CAP PO SCH (20:49)
[2018-05-05] MEDS: INSULIN LISPRO 100 UNITS/ML PEN SUBCU SCH (21:00)
[2018-05-06] MEDS: KETOROLAC TROMETHAMINE INJ 30 MG/ML VIAL IV SCH ×4 (00:07→18:04)
[2018-05-06] MEDS: PANTOPRAZOLE SODIUM IV 40 MG VIAL IV SCH (06:12)
[2018-05-06] MEDS ORDERED: GLYBURIDE 2.5 MG PO SCH (07:00)
[2018-05-06] MEDS ORDERED: VANCOMYCIN PER PHARMACY IVPB SCH (08:00)
[2018-05-06] MEDS ORDERED: VANCOMYCIN HCL INJ 1,000 MG, VANCOMYCIN HCL INJ 500 MG in SODIUM CHLORIDE 0.9% 250ML 25... IVPB SCH (08:00)
[2018-05-06] MEDS ORDERED: VANCOMYCIN HCL INJ 500 MG VIAL ONE ×2 (09:26→20:12)
[2018-05-06] MEDS ORDERED: SODIUM CHLORIDE 0.9% 250ML 250 ML ONE ×2 (09:26→20:12)
[2018-05-06] MEDS ORDERED: VANCOMYCIN HCL INJ 1,000 MG VIAL IVPB ONE ×2 (09:27→20:13)
[2018-05-06] MEDS: GABAPENTIN 300 MG CAP PO SCH ×2 (09:38→20:38)
[2018-05-06] MEDS: INSULIN LISPRO 100 UNITS/ML PEN SUBCU SCH ×4 (09:38→21:02)
[2018-05-06] MEDS ORDERED: CHLORHEXIDINE GLUCONATE 4 % 15 ML UD TOP ONE ×2 (10:00→10:53)
--- NOTE | 2018-05-06 11:23 | CONS ---
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 He had a wound where his feet and toes became tender and red. He changed boots eventually to rubber boots and presented to the [facility] when he could no longer put his boots on due to pain. He was treated with clindamycin and returned with ongoing issues with no improvement, drainage from the third left toe. He was admitted last night through the Emergency Room and started on vancomycin and elevation. PAST MEDICAL HISTORY: 1. Diabetes. He has no history of heart disease. 2. Hypertension. 3. History of a wound with MRSA last year on his other leg. PAST SURGICAL HISTORY: CURRENT MEDICATIONS: 1. Lisinopril. 2. Glyburide. 3. Gabapentin. 4. Janumet. 5. Multivitamin. ALLERGIES: FAMILY HISTORY: Positive for hypertension. SOCIAL HISTORY: He does use tobacco products but does not drink alcohol or use illicit drugs. REVIEW OF SYSTEMS: He denies chest pain or shortness of breath. He denies upper respiratory symptoms. He denies GI problems but notes that he has changed his diet and lost 70 pounds. He does have peripheral neuropathy mainly involving his lower extremities. PHYSICAL EXAMINATION: VITAL SIGNS: Afebrile and normotensive. GENERAL: The patient is awake, alert and cooperative, and in no acute distress. HEENT: Reveals the sclera to be nonicteric. Mucous membranes are moist. NECK: Without adenopathy. BACK: Without CVA tenderness. CHEST: He has equal breath sounds bilaterally. ABDOMEN: Soft and benign. EXTREMITIES: The second, third and fourth toes on the left foot are mildly erythematous and red. There is a draining sinus on the lateral aspect of the mid toe with purulent drainage and this was cultured. There is also an eschar on the medial aspect of the anterior surface. LABORATORY: White blood cell count 8.9 in the Emergency Room with a left shift of 86% neutrophils, hemoglobin 12.5, platelet count 114,000. Creatinine 0.68. Liver functions are within normal limits. Hemoglobin A1c is said to be 6.1. I do not have that record report in front of me. X-ray of his left foot reveals a pathological fracture of the left third toe and changes consistent with osteomyelitis. IMPRESSION: 1. Osteomyelitis of the left third toe. PLAN: Local care with [facility]. Await the culture results. Currently treat him with vancomycin. I discussed with the patient the possible need for amputation versus half-way antibiotic therapy. #[id number] [facility]
[2018-05-06] MEDS: CHLORHEXIDINE GLUC 4% 15ML 45 ML, WATER FOR IRRIGATION 1,000 ML TOP SCH ×4 (11:50→20:38)
--- NOTE | 2018-05-06 12:02 | PN ---
DATE: 05/06/18 SUPERVISING PHYSICIAN: Román Roberts M.D. SUBJECTIVE: The patient is lying in bed. Has no complaints other than his sleeping hours are messed up because he normally sleeps days and works nights. Denies shortness of breath, chest pain, nausea or vomiting. OBJECTIVE: VITAL SIGNS: Temperature 98.1, pulse rate 76, blood pressure 107/64 , respiratory rate 18, O2 sat 94% on room air. RESPIRATORY: Essentially clear to auscultation bilaterally. CARDIAC: Regular rate and rhythm. GASTROINTESTINAL: Abdomen is soft, nondistended, non-tender. Bowel sounds are positive. EXTREMITIES: Bilateral pedal pulses are palpable at +2. His second, third and fourth toes on his left foot are less edematous and erythematous from yesterday's exam. There is some drainage between the third and fourth left toe. Dr. Goetz saw the patient and has cultured that. He has had a small amount of himanshu bleeding from that wound site that has now stopped. NEUROLOGIC : He is awake, alert and oriented times three. LABORATORY: WBCs are normal at 7.4 with a left shift on differential. Hemoglobin 11.3, hematocrit 33.8. Hemoglobin A1c is 6.1 with basically normal electrolytes. Blood sugars have run between 147 and 286. Preliminary blood cultures are negative to date. All other labs and films have been reviewed via the EMR. ASSESSMENT: 1. Osteomyelitis of the left third toe. 2. Cellulitis of the left second, third and fourth toes, failed outpatient treatment. 3. Diabetes mellitus type 2. 4. Diabetic neuropathy. 5. Gastroesophageal reflux disease. 6. History of kidney stones with ureteral stents. 7. Hypertension. PLAN: We will continue present supportive care. We will continue with his vancomycin and await culture results. Dr. Goetz has seen the patient in consultation and we will defer to his recommendations for wound care. Due to the osteomyelitis he will need additional antibiotic coverage so I will add Levaquin and Flagyl. I will attempt to contact Dr. Gonzalez, Infectious Diseases, although it may be Tuesday morning before we can get in touch with her. Will continue with good pulmonary hygiene. Will monitor the patient closely and follow as needed. #[id number] [facility]
[2018-05-06] MEDS ORDERED: metroNIDAZOLE IV PREMIX 500MG 100 ML IVPB ONE ×3 (15:00→20:14)
[2018-05-06] MEDS: metroNIDAZOLE IV PREMIX 500MG 500 MG in PREMIX BAG 1 BAG IVPB SCH ×2 (15:11→23:02)
[2018-05-06] MEDS: levoFLOXacin 750MG IV 750 MG in PREMIX BAG 1 BAG IVPB SCH (16:20)
[2018-05-06] MEDS: SODIUM CHLORIDE 0.9% (FLUSH) 10 ML SYG IV PRN ×2 (16:20→18:03)
[2018-05-06] MEDS ORDERED: LISINOPRIL 5 MG TAB PO SCH (18:00)
[2018-05-06] MEDS: METFORMIN PO SCH (18:04)
[2018-05-06] MEDS: [UNRECOGNIZED DRUG - OTHER] PO SCH (18:04)
[2018-05-06] MEDS: SITAGLIPTIN PO SCH (18:04)
[2018-05-06] MEDS ORDERED: glyBURIDE 5 MG TAB PO ONE (20:13)
[2018-05-06] MEDS: ENOXAPARIN SODIUM 40 MG/0.4 ML SYG SUBCU SCH (20:37)
[2018-05-06] MEDS: VANCOMYCIN HCL INJ 1,000 MG, VANCOMYCIN HCL INJ 500 MG in SODIUM CHLORIDE 0.9% 250ML 25... IVPB SCH (21:02)
[2018-05-07] MEDS: ALPRAZolam 0.25 MG TAB PO PRN (06:17)
[2018-05-07] MEDS: glyBURIDE 5 MG TAB PO SCH (06:37)
[2018-05-07] MEDS: PANTOPRAZOLE SODIUM IV 40 MG VIAL IV SCH (06:37)
[2018-05-07] MEDS: metroNIDAZOLE IV PREMIX 500MG 500 MG in PREMIX BAG 1 BAG IVPB SCH ×2 (06:38→15:01)
[2018-05-07] MEDS: [UNRECOGNIZED DRUG - OTHER] PO SCH (06:38)
[2018-05-07] MEDS: METFORMIN PO SCH (06:38)
[2018-05-07] MEDS: SITAGLIPTIN PO SCH (06:38)
[2018-05-07] MEDS ORDERED: SODIUM CHLORIDE 0.9% 250ML 250 ML ONE ×2 (09:03→19:46)
[2018-05-07] MEDS ORDERED: VANCOMYCIN HCL INJ 500 MG VIAL ONE ×2 (09:03→19:46)
[2018-05-07] MEDS ORDERED: VANCOMYCIN HCL INJ 1,000 MG VIAL IVPB ONE ×2 (09:04→19:47)
[2018-05-07] MEDS: VANCOMYCIN HCL INJ 1,000 MG, VANCOMYCIN HCL INJ 500 MG in SODIUM CHLORIDE 0.9% 250ML 25... IVPB SCH ×2 (09:30→22:38)
[2018-05-07] MEDS: CHLORHEXIDINE GLUC 4% 15ML 45 ML, WATER FOR IRRIGATION 1,000 ML TOP SCH ×4 (09:31→21:30)
[2018-05-07] MEDS: GABAPENTIN 300 MG CAP PO SCH ×2 (09:31→20:42)
[2018-05-07] MEDS: INSULIN LISPRO 100 UNITS/ML PEN SUBCU SCH ×4 (09:31→21:00)
[2018-05-07] MEDS: BIFIDOBACTERIUM INFANTIS 4 MG CAP PO SCH ×2 (11:54→20:42)
[2018-05-07] MEDS ORDERED: metroNIDAZOLE IV PREMIX 500MG 100 ML IVPB ONE (14:57)
[2018-05-07] MEDS: HYDROcodone 5MG/APAP 325MG 1 EA TAB PO PRN (15:16)
[2018-05-07] MEDS: levoFLOXacin 750MG IV 750 MG in PREMIX BAG 1 BAG IVPB SCH (16:19)
[2018-05-07] MEDS: LISINOPRIL 10 MG TAB PO SCH (19:25)
--- NOTE | 2018-05-07 19:44 | PN ---
DATE: 05/07/18 SUPERVISING PHYSICIAN: Román Roberts M.D. SUBJECTIVE: The patient is lying in bed. He has his left foot elevated above his heart. He feels 100% better. He denies any nausea, vomiting, diarrhea, constipation, chest pain or shortness of breath. He asked if he could take a shower today and I told him I would defer to Dr. Goetz for further instructions. OBJECTIVE: VITAL SIGNS: Temperature 97.8, heart rate 89, blood pressure 142/74 , respiratory rate 20, O2 sat is 98% on room air. RESPIRATORY: Essentially clear to auscultation bilaterally. CARDIAC: Regular rate and rhythm. GASTROINTESTINAL: Abdomen is soft, nondistended, non-tender. Bowel sounds are positive. EXTREMITIES: Bilateral pedal pulses are +2. His second, third and fourth toes on his left foot have significantly improved from yesterday and his admission. His third toe is still somewhat edematous and there is scabbing on the ball of his foot as well as a scabbed area between his toes, otherwise there is no significant drainage and minimal erythema. NEUROLOGIC: He is awake , alert and oriented times three. LABORATORY: There are no labs or films to report at this time. ASSESSMENT: 1. Osteomyelitis of the left third toe. 2. Cellulitis of the left second, third and fourth toes, failed outpatient treatment. 3. Diabetes mellitus type 2. 4. Diabetic neuropathy. 5. Gastroesophageal reflux disease. 6. History of kidney stones with ureteral stents. 7. Hypertension. PLAN: We will continue present supportive care. We will continue on his vancomycin, Flagyl and Levaquin until Infectious Diseases, Dr. Gonzalez, can be contacted tomorrow. His wound culture did get sent out and we will monitor that closely. His lab has stabilized so I will hold off on any lab for tomorrow. He may benefit from a foot x-ray in the next 2 or 3 days. His foot has significantly improved over the last 2 days, but he will need probably 6 weeks of antibiotic therapy and will call Dr. Gonzalez for that. As far as the patient's activity and showering, we will ask Dr. Goetz and consult for his recommendations on that. Otherwise I encouraged the patient to keep his left foot elevated as well as continue good pulmonary hygiene. Will continue to monitor him closely and follow as needed. [facility][id number] [facility]
[2018-05-07] MEDS: ENOXAPARIN SODIUM 40 MG/0.4 ML SYG SUBCU SCH (20:42)
[2018-05-07] MEDS: SODIUM CHLORIDE 0.9% (FLUSH) 10 ML SYG IV PRN (22:37)
[2018-05-08] MEDS ORDERED: metroNIDAZOLE IV PREMIX 500MG 100 ML IVPB ONE ×3 (00:03→14:31)
[2018-05-08] MEDS: metroNIDAZOLE IV PREMIX 500MG 500 MG in PREMIX BAG 1 BAG IVPB SCH ×3 (00:39→14:39)
[2018-05-08] MEDS: SODIUM CHLORIDE 0.9% (FLUSH) 10 ML SYG IV PRN ×6 (00:40→17:30)
[2018-05-08] MEDS: ALPRAZolam 0.25 MG TAB PO PRN (02:00)
[2018-05-08] MEDS: PANTOPRAZOLE SODIUM IV 40 MG VIAL IV SCH (06:40)
[2018-05-08] MEDS: SITAGLIPTIN PO SCH (06:41)
[2018-05-08] MEDS: [UNRECOGNIZED DRUG - OTHER] PO SCH (06:41)
[2018-05-08] MEDS: METFORMIN PO SCH (06:41)
[2018-05-08] MEDS: glyBURIDE 5 MG TAB PO SCH (06:41)
[2018-05-08] MEDS: INSULIN LISPRO 100 UNITS/ML PEN SUBCU SCH ×4 (07:38→21:31)
[2018-05-08] MEDS ORDERED: VANCOMYCIN HCL INJ 500 MG VIAL ONE ×2 (07:45→19:37)
[2018-05-08] MEDS ORDERED: VANCOMYCIN HCL INJ 1,000 MG VIAL IVPB ONE ×2 (07:46→19:37)
[2018-05-08] MEDS ORDERED: SODIUM CHLORIDE 0.9% 250ML 250 ML ONE ×2 (07:46→19:37)
[2018-05-08] MEDS: GABAPENTIN 300 MG CAP PO SCH ×2 (09:30→21:30)
[2018-05-08] MEDS: BIFIDOBACTERIUM INFANTIS 4 MG CAP PO SCH ×2 (09:30→21:30)
[2018-05-08] MEDS: CHLORHEXIDINE GLUC 4% 15ML 45 ML, WATER FOR IRRIGATION 1,000 ML TOP SCH ×4 (09:31→21:31)
[2018-05-08] MEDS: VANCOMYCIN HCL INJ 1,000 MG, VANCOMYCIN HCL INJ 500 MG in SODIUM CHLORIDE 0.9% 250ML 25... IVPB SCH ×2 (09:32→21:53)
--- NOTE | 2018-05-08 15:04 | PN ---
SUPERVISING PHYSICIAN: Jose Delaney MD DATE: 05/08/18 SUBJECTIVE: The patient is resting in bed with his foot elevated. He feels better today, but continues to have some pain in the bottom of his foot on ambulation. He has taken a shower and has had no nausea or vomiting or any further complaints. OBJECTIVE: VITAL SIGNS: T-max 99. Pulse 115. Blood pressure 124/74. Respirations 18. And therefore 98% on room air. I&Os show positive balance of 2166 with 2966 in , 800 out. He has had a bowel movement today. Weight 91.8 kg. GENERAL: The patient appears to be resting comfortable, in no acute distress. He is alert. CHEST: Lungs clear to auscultation bilaterally. HEART: Regular rate and rhythm. ABDOMEN: Soft, nontender. Positive bowel sounds. EXTREMITIES: Distal pulses 2+ pedal. There is a bandage in place over the left foot. There is notable erythema passed the bandage. No drainage noted through the bandage. Wound dressing had just been completed with Dr. Goetz's assessment. NEUROLOGIC: Alert and oriented times three. LABORATORY: Most recent labs include blood sugars ranging from 89 to 136 with vancomycin trough on 05/07/18 being 12.4. MICROBIOLOGY: Wound culture continues to be pending. MRSA surveillance culture pending. Blood culture remains negative at 48 hours. RADIOLOGY: No additional radiographic studies completed today. ASSESSMENT: 1. Osteomyelitis of the left third toe, wound cultures pending. 2. Cellulitis of the left second, third and fourth toes, failed outpatient treatment resulting in #1. 3. Diabetes mellitus, type 2, well controlled, complicating #1. 4. Diabetic neuropathy. 5. Gastroesophageal reflux disease. 6. History of kidney stones with ureteral stents. 7. Hypertension. PLAN: I did talk to Dr. Gonzalez. At this point, we will plan to discharge either tomorrow or the next day with continued vancomycin until she can see him on followup appointment this coming week. Hopefully we can discharge tomorrow, have a PICC line placed Tuesday morning with a followup appointment either late Tuesday afternoon or to continue with outpatient management. Likely anticipate at least 6 weeks for antibiotic therapy. I have requested the PICC line placement which will be done once he is discharged. He will continue to followup with Dr. Goetz per his recommendations. I again encouraged him to keep his foot elevated and utilize his incentive spirometry to prevent any complications. We will continue to monitor the patient and treat appropriate until discharge. #[id number] [facility]
[2018-05-08] MEDS: levoFLOXacin 750MG IV 750 MG in PREMIX BAG 1 BAG IVPB SCH (15:56)
[2018-05-08] MEDS: LISINOPRIL 10 MG TAB PO SCH (17:30)
[2018-05-08] MEDS: IV SET AND CAP CHANGE INJ INJ SCH (18:32)
[2018-05-08] MEDS: ENOXAPARIN SODIUM 40 MG/0.4 ML SYG SUBCU SCH (21:30)
[2018-05-09] MEDS: SODIUM CHLORIDE 0.9% (FLUSH) 10 ML SYG IV PRN (00:18)
[2018-05-09] MEDS: metroNIDAZOLE IV PREMIX 500MG 500 MG in PREMIX BAG 1 BAG IVPB SCH ×4 (00:18→15:09)
[2018-05-09] MEDS ORDERED: metroNIDAZOLE IV PREMIX 500MG 0 ML IVPB ONE (04:54)
[2018-05-09] MEDS ORDERED: PANTOPRAZOLE SODIUM TAB 40 MG PO SCH (06:30)
[2018-05-09] MEDS: glyBURIDE 5 MG TAB PO SCH (06:36)
[2018-05-09] MEDS: METFORMIN PO SCH (06:36)
[2018-05-09] MEDS: [UNRECOGNIZED DRUG - OTHER] PO SCH (06:36)
[2018-05-09] MEDS: SITAGLIPTIN PO SCH (06:36)
[2018-05-09] MEDS: INSULIN LISPRO 100 UNITS/ML PEN SUBCU SCH ×3 (07:06→16:56)
[2018-05-09] MEDS: HYDROcodone 5MG/APAP 325MG 1 EA TAB PO PRN ×2 (07:34→20:25)
[2018-05-09] MEDS ORDERED: VANCOMYCIN HCL INJ 500 MG VIAL ONE ×2 (08:51→17:02)
[2018-05-09] MEDS ORDERED: SODIUM CHLORIDE 0.9% 250ML 250 ML ONE ×2 (08:52→17:02)
[2018-05-09] MEDS ORDERED: VANCOMYCIN HCL INJ 1,000 MG VIAL IVPB ONE ×2 (08:52→17:03)
[2018-05-09] MEDS: GABAPENTIN 300 MG CAP PO SCH (09:17)
[2018-05-09] MEDS: BIFIDOBACTERIUM INFANTIS 4 MG CAP PO SCH (09:17)
[2018-05-09] MEDS: CHLORHEXIDINE GLUC 4% 15ML 45 ML, WATER FOR IRRIGATION 1,000 ML TOP SCH ×4 (09:19→12:28)
[2018-05-09] MEDS: VANCOMYCIN HCL INJ 1,000 MG, VANCOMYCIN HCL INJ 500 MG in SODIUM CHLORIDE 0.9% 250ML 25... IVPB SCH (09:35)
[2018-05-09 13:59] VITALS: O2SAT 96
[2018-05-09] MEDS ORDERED: levoFLOXacin 750MG IV 0 ML IVPB ONE (14:41)
[2018-05-09] MEDS ORDERED: metroNIDAZOLE IV PREMIX 500MG 100 ML IVPB ONE (14:41)
[2018-05-09 17:46] VITALS: BP 96/60; TEMP 98.1
[2018-05-09] MEDS: LISINOPRIL 10 MG TAB PO SCH (17:46)
[2018-05-09] MEDS ORDERED: VANCOMYCIN HCL INJ 1,000 MG, VANCOMYCIN HCL INJ 500 MG in SODIUM CHLORIDE 0.9% 250ML 25... IVPB SCH (18:30)
--- NOTE | 2018-05-16 11:37 | DS ---
SUPERVISING PHYSICIAN: Jose Delaney MD ADMISSION DIAGNOSIS: 1. Osteomyelitis of the left third toe. 2. Cellulitis of the left second, third and fourth toes, failed outpatient treatment. 3. Diabetes mellitus, type 2. 4. Diabetic neuropathy. 5. Gastroesophageal reflux disease. 6. History of kidney stones with ureteral stents. 7. Hypertension. DISCHARGE DIAGNOSIS: 1. Osteomyelitis of the left third toe, final wound cultures showing beta Streptococcus group B and methicillin-resistant Staphylococcus aureus. The patient will continue with outpatient treatment with parenteral antibiotics. 2. Cellulitis of the left second, third and fourth toes, failed outpatient treatment resulting in #1, responding well to parenteral antibiotics. 3. Diabetes mellitus, type 2, well controlled, but complicating #1. 4. Chronic diabetic neuropathy. 5. Gastroesophageal reflux disease, stable. 6. History of kidney stones with ureteral stents. 7. Hypertension, stable. REASON FOR HOSPITALIZATION: Mr. Hadley is a 62 year-old male patient who presented to the Emergency Room initially on 05/05/18 after approximately 1 month of pain in his left foot, specifically his second, third and fourth toes. 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 He does also have a history of diabetic neuropathy. His boots got wet and he developed some sores between his toes. He did frequent soaks in Epsom salts as well as dressing them with triple antibiotic ointment. He then got a second new pair of boots and he had the same problem with them. He then went to rubber boots and his condition on his toes worsened. During that time, he was seen at [facility] and treated with clindamycin twice daily and now presented to the Emergency Room because the pain had worsened as well as his toes were very swollen. In the Emergency Room, his lactic acid was normal. White count was 8900, but he did have a left shift on his differential. Blood cultures were drawn. An x-ray was obtained of his left foot that had findings consistent with osteomyelitis involving the proximal and middle phalanges of the left third toe. His initial temperature was 100.2 . He was then admitted to the Medical/Surgical Floor for ongoing treatment of osteomyelitis of the left third toe. He was admitted in stable condition. LABORATORY: White count on admission was 8900. At discharge, it was 7400. Hemoglobin and hematocrit were stable and at discharge were 11.3 and 33.8 respectively with platelet count 102,000. Differential did show a left shift, but resolving prior to discharge. His chemistries on admission were showing normal electrolytes with a lactic acid 1.1. All liver functions were within normal limits. Hemoglobin today was 6.1 prior to discharge. Electrolytes remained stable with BUN 22, creatinine 0.87. Blood sugars have been between 64 and 286. He had two vancomycin troughs, initially on 05/07/18 was 12.3 and on 05/09/18 was 16.7. MICROBIOLOGY: MRSA surveillance culture was negative. Wound culture showed group B strep and MRSA on the left third toe. Blood cultures remained negative after 5 days. RADIOLOGY: Initially in the Emergency Department, he had a foot x-ray and per radiologic interpretation was consistent with osteomyelitis involving the proximal and mid phalanges of the left third toe. HOSPITAL COURSE: Mr. Hadley was admitted on 05/05/18 for osteomyelitis of the left third toe. He was started on vancomycin per pharmacy protocol as well as Levaquin and Flagyl. His leg was elevated while in bed and was showing good improvement with significant decrease in pain and decrease of the cellulitis and inflammation and showing good response to antibiotic therapy. Consultation was secured with Dr. Goetz who followed the patient for wound management and on the day of discharge felt the patient had progressed well enough to continue with outpatient treatment and management and to followup with Dr. Gonzalez. CONSULTATION: Dr. Goetz, general surgeon. Please see his consultation note for full report. PLAN: Mr. Hadley is discharged on 05/09/18 to have continued followup with his primary care provider at [facility] as well as to see Dr. Gonzalez , infectious disease specialist in [place]. Arrangements were made for outpatient infusion of vancomycin until he could be seen in followup with Dr. Gonzalez. PICC line has been ordered which will be placed after discharge. He was to continue with wound management with showering, but no tub baths and cleansing with chlorhexidine diluted as directed. He is to followup also with Dr. Goetz after he sees Dr. Gonzalez with intentions of plan to probably amputate that left toe once the infection is much more controlled and has a much clean operative site. Until then, he will continue with outpatient management and be followed by Dr. Gonzalez. ACTIVITY: He is to stay off the foot as much as possible and keep the foot elevated. No close-toed shoes. DIET: Diabetic diet as tolerated. MEDICATIONS AT DISCHARGE: 1. Align 4 mg twice daily. 2. Chlorhexidine solution for wound care. 3. Vancomycin per pharmacy protocol. All other medications from prior to admission were continued without modification. CONDITION AT DISCHARGE: Stable and improved. #[id number] [facility]
== END 2018-05-09 21:00 | disposition home or self-care (01) | DRG 638 ==
LOC: ER 14:37 → MS 17:02
PROVIDERS: ADMIT Nurse Practitioner Acute Care; ATTEND Nurse Practitioner Family
DX: E11.69 Type 2 diabetes mellitus with other specified complication (principal); M86.8X7 Other osteomyelitis, ankle and foot; M84.478A Pathological fracture, left toe(s), initial encounter for fracture; L03.116 Cellulitis of left lower limb; B95.62 Methicillin resistant Staphylococcus aureus infection as the cause of diseases classified elsewhere; B95.1 Streptococcus, group B, as the cause of diseases classified elsewhere; E11.40 Type 2 diabetes mellitus with diabetic neuropathy, unspecified; I10 Essential (primary) hypertension; K21.9 Gastro-esophageal reflux disease without esophagitis; F17.290 Nicotine dependence, other tobacco product, uncomplicated; Z79.84 Long term (current) use of oral hypoglycemic drugs; Z79.899 Other long term (current) drug therapy

== ENCOUNTER → 2018-05-19 | Outpatient (CLI) | payer BC ==
--- NOTE | 2018-05-20 11:43 | MRI ---
MRI left foot without contrast INDICATION: Osteomyelitis TECHNIQUE: Noncontrast MR imaging left foot FINDINGS: There is diffuse marrow edema throughout the third toe into the head of the third metatarsal. There is bone destruction and apparent pathologic fracture of the proximal phalanx of the third toe. There is diffuse soft tissue edema/cellulitis throughout the foot. There is osteoarthrosis of the first MTP joint and hallux sesamoids. Prominent fluid surrounding the third toe. The edema in the third metatarsal head is concerning for septic third MTP joint. IMPRESSION: Bone destruction and pathologic fracture involving the proximal phalanx of the third toe with marrow involvement into the middle phalanx and third metatarsal head concerning for osteomyelitis and septic arthritis. 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
== END ==
LOC: MRI 10:16
PROVIDERS: ATTEND Podiatrist Foot & Ankle Surgery
DX: M86.9 Osteomyelitis, unspecified (principal); M84.478A Pathological fracture, left toe(s), initial encounter for fracture; M19.072 Primary osteoarthritis, left ankle and foot